=== PATIENT | female | born 1980 | race Two or more races ===

== ENCOUNTER 2021-12-12 09:07 | Emergency (ER) | payer MEDICAID, OTHER ==
[~2021-12-12] VITALS: Ht 167.6 cm; Wt 142.4 kg
[2021-12-12 10:18] LABS: Basophils # (auto) 0.2 10 ^3/uL (0-0.2); Basophils % (auto) 1.3 % (0.0-2.0); Eosinophils # (auto) 0 10 ^3/uL (0-0.8); Eosinophils % (auto) 0.3 % (0.0-7.0); Hematocrit 43.7 % (36.0-46.0); Hemoglobin 14.6 g/dL (12.2-16.2); Lymphocytes # (auto) 2.5 10 ^3/uL (0.4-5.4); Lymphocytes % (auto) 16.3 % (10.0-50.0); Mean Corpuscular Hemoglobin 28.1 pg (28.0-32.0); Mean Corpuscular Hgb Conc. 33.5 g/dL (32.0-36.0); Mean Corpuscular Volume 83.9 fL (80.0-100.0); Monocytes # (auto) 0.8 10 ^3/uL (0-1.3); Monocytes % (auto) 4.9 % (0.0-12.0); Neutrophils # (auto) 11.9 10 ^3/uL (1.6-8.6); Neutrophils % (auto) 77.2 % (37.0-80.0); Nucleated Red Blood Cells % 0.1 %; Red Blood Cells 5.21 10^6/uL (4.0-5.20); Red Cell Distribution Width 13.4 % (11.8-14.3); White Blood Cell 15.5 10^3/uL (4.4-10.8)
[2021-12-12 10:34] LABS: Albumin 3.3 g/dL (3.4-5.0); Calcium 8.6 mg/dL (8.5-10.1)
[2021-12-12 10:38] LABS: BUN/Creatinine Ratio 12.1; Bilirubin, Total 0.6 mg/dL (0.2-1.0)
[2021-12-12] MEDS ORDERED: ACETAMINOPHEN 325 MG TAB PO ONE (11:15)
[2021-12-12 15:25] VITALS: BP 132/86
== END 2021-12-12 15:29 | disposition admitted as inpatient to this hospital (09) ==
LOC: ER 09:07
DX: R07.89 Other chest pain (principal)
CPT/HCPCS: 36415; 71045; 76705; 80053; 84484; 85025; 93005